=== PATIENT | female | born 1940 | race Caucasian/White ===

== ENCOUNTER 2017-07-13 16:56 | Emergency (ER) | payer MEDICARE, MEDICAID ==
[2017-03-18 08:30] VITALS: Ht 162.6 cm; Wt 103.4 kg
[~2017-07-13] VITALS: Ht 162.6 cm; Wt 103.4 kg
[~2017-07-13 16:56] MED LIST: ALBU2.5V36 INH; ALP25; ALPR-429 PO; ALPR-448 PO; AMLO2.5T74 PO; ASPI81TA86 PO; BUDE0.5A6 IH; CAR3.125 PO; FURO-45 PO; FURO20TA19 PO; GUAI600T57 PO; INDO-1 PO; LEVO750P2 IV; LOR5 PO; LOR5/325 PO; OMEP-137 PO; OXYC5TAB38 PO; POTA10CA40 PO; VANC1.5P11 IV
--- NOTE | 2017-07-13 17:09 | ER Report ---
History and Physical Time Seen By MD: 17:09 HPI/ROS CHIEF COMPLAINT: leg blisters and edema HISTORY OF PRESENT ILLNESS: This is a 76 year old female. She is having the start of blistering on her right ankle similar to prior blistering she had with hospitalization in Mar 2017. During that hospitalization, she was admitted here , then transferred to the burn center, then sent back here to [facility] for wound care. She started on Vancomycin and Levaquin, later transitioned to simply Levaquin. 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 Turned out to be most likely cellulitis which resolved with the Levaquin. She just started the blisters again and wanted to address them before they became so extensive again. She is having some increased edema in the ankles. She does take a diuretic daily. She just started taking potassium tablets recently with lab test last week with her primary care provider. No other new medications. She has no fevers or chills. She has chronic shortness of breath, but is no worse than her chronic levels. She does wear oxygen 2 liters nasal canula chronically. REVIEW OF SYSTEMS: Constitutional: No fever or chills. ENT: No congestion. Cardiovascular: No chest pain. No palpitations. Respiratory: As above. Gastrointestinal: No abdominal pain. No nausea or vomiting. Genitourinary: No dysuria. Neurological: Generalized weakness. Allergies: Coded Allergies: Influenza Virus Vaccines (Verified Allergy, Unknown, 07/13/17) Home Meds Active Scripts Clindamycin Hcl (CLINDAMYCIN HCL) 300 Mg Capsule, 300 MG PO Q6H, #40 CAPSULE 0 Refills Prov:CECE ARAUZ MD 07/13/17 Sulfamethoxazole/Trimet 800-160 Mg Tab (BACTRIM DS TABLET) 1 Each Tablet, 1 TAB PO Q12H for 10 Days, #20 TAB 0 Refills Prov:CECE ARAUZ MD 07/13/17 Omeprazole (OMEPRAZOLE) 20 Mg Tablet., 20 MG PO QDAY, #30 TAB Prov:JORDEN LAMB MD 09/09/16 Carvedilol (CARVEDILOL) 3.125 Mg Tab, 3.125 MG PO BID, #60 TAB Prov:JORDEN LAMB MD 09/09/16 Aspirin (ASPIRIN EC) 81 Mg Tablet., 81 MG PO QDAY, #30 TAB Prov:JORDEN LAMB MD 09/09/16 Amlodipine Besylate (AMLODIPINE BESYLATE) 2.5 Mg Tablet, 2.5 MG PO QDAY, #30 TAB Prov:JORDEN LAMB MD 09/09/16 Reported Medications Albuterol Sulfate 0.083% (ALBUTEROL SULFATE 0.083%) 2.5 Mg/3 Ml Vial.neb, 2.5 MG INH BID, INH 03/31/17 Budesonide (BUDESONIDE) 0.5 Mg/2 Ml Ampul.neb, 0.5 MG IH BID, ML 03/31/17 Alprazolam 0.5 Mg Tab (ALPRAZOLAM 0.5 MG TAB) 0.5 Mg Tablet, 0.5 MG PO BID Y for ANXIETY, TAB 03/31/17 Potassium Chloride (POTASSIUM CHLORIDE) 10 Meq Capsule.er, 10 MEQ PO DAILY 03/31/17 Furosemide (LASIX) 20 Mg Tablet, 0.5 TAB PO DAILY, TAB 03/31/17 Discontinued Scripts Oxycodone Hcl (OXYCODONE HCL) 5 Mg Tablet, 5-10 MG PO BID Y for PAIN, #60 TAB Prov:JORDEN LAMB MD 03/31/17 Reviewed Nurses Notes: Yes Hx Smoking: Yes Smoking Status: Former Smoker Hx Substance Use Disorder: No Hx Alcohol Use: Yes Constitutional Vital Sign - Last 24 Hours 07/13/17 07/13/17 07/13/17 07/13/17 17:04 17:06 17:11 17:15 Pulse 65 61 B/P (MAP) 186/82 (116) 198/83 (121) Pulse Ox 92 97 07/13/17 07/13/17 07/13/17 07/13/17 17:16 17:21 17:26 17:27 Temp 98.2 Pulse 62 59 58 58 Resp 18 B/P (MAP) 186/82 Pulse Ox 96 95 96 96 O2 Delivery Nasal Cannula 07/13/17 07/13/17 07/13/17 07/13/17 17:31 17:36 17:41 17:45 Pulse 57 55 54 B/P (MAP) 189/94 (125) 186/100 (128) Pulse Ox 97 96 96 07/13/17 07/13/17 07/13/17 07/13/17 17:46 17:51 17:56 18:00 Pulse 60 53 53 B/P (MAP) 191/107 (135) Pulse Ox 97 96 97 07/13/17 07/13/17 07/13/17 07/13/17 18:01 18:06 18:11 18:15 Pulse 56 58 55 B/P (MAP) 164/93 (116) Pulse Ox 96 96 96 07/13/17 07/13/17 07/13/17 07/13/17 18:16 18:21 18:26 18:30 Pulse 56 55 B/P (MAP) 187/98 (127) Pulse Ox 96 96 97 07/13/17 07/13/17 07/13/17 18:31 18:36 18:41 Pulse 56 57 58 B/P (MAP) 185/94 (124) Pulse Ox 95 96 96 Physical Exam General Appearance: The patient is alert. No acute distress. Respiratory: Lungs are clear to auscultation. Cardiovascular: Regular rate and rhythm. No murmurs, gallops or rubs. Normal capillary refill. 2+ edema in ankles to trace at mid-tibia bilaterally. Gastrointestinal: Abdomen is soft and non tender. Nondistended. Normal active bowel sounds. Neurological: Alert and oriented x3. Skin: Warm and dry. Erythema and warmth over anterior right ankle where the blisters are. Mild rash on medial left ankle, but no warmth or blisters there. Blisters are all intact on my evaluation. Musculoskeletal: Mild tenderness over the area of rash, otherwise non-tender. Full range of motion. DIFFERENTIAL DIAGNOSIS: After history and physical exam, differential diagnosis was considered for new onset of her blistering rash, which appears to be cellulitis again. Reviewed her hospitalization notes from March. Reviewed the culture results which showed MRSA, Strep and Proteus. Sensitivities available. Medical Decision Making Data Points Result Diagram: 07/13/17 1728 07/13/17 1728 Laboratory Hematology Test 07/13/17 17:28 Red Blood Count 4.74 M/uL (4.17-5.56) Mean Corpuscular Volume 85.7 fL (80.0-96.0) Mean Corpuscular Hemoglobin 29.0 pg (26.0-33.0) Mean Corpuscular Hemoglobin Concent 33.9 g/dL (32.0-36.0) Red Cell Distribution Width 14.5 % (11.5-14.5) Mean Platelet Volume 9.2 fL (7.2-11.1) Neutrophils (%) (Auto) 61.6 % (39.4-72.5) Lymphocytes (%) (Auto) 23.3 % (17.6-49.6) Monocytes (%) (Auto) 10.6 % (4.1-12.4) Eosinophils (%) (Auto) 3.7 % (0.4-6.7) Basophils (%) (Auto) 0.8 % (0.3-1.4) Nucleated RBC Relative Count (auto) 0.1 /100WBC Neutrophils # (Auto) 4.3 K/uL (2.0-7.4) Lymphocytes # (Auto) 1.6 K/uL (1.3-3.6) Monocytes # (Auto) 0.7 K/uL (0.3-1.0) Eosinophils # (Auto) 0.3 K/uL (0.0-0.5) Basophils # (Auto) 0.1 K/uL (0.0-0.1) Nucleated RBC Absolute Count (auto) 0.00 K/uL Sodium Level 139 mmol/L (137-145) Potassium Level 3.5 mmol/L (3.5-5.0) Chloride Level 97 mmol/L (98-107) Carbon Dioxide Level 36 mmol/L (22-31) Blood Urea Nitrogen 14 mg/dl (7-18) Creatinine 0.80 mg/dl (0.52-1.04) Glomerular Filtration Rate Calc > 60.0 Random Glucose 95 mg/dl (75-110) Calcium Level 8.8 mg/dl (8.4-10.2) Total Bilirubin 0.6 mg/dl (0.2-1.3) Aspartate Amino Transf (AST/SGOT) 18 U/L (0-35) Alanine Aminotransferase (ALT/SGPT) 20 U/L (0-56) Alkaline Phosphatase 73 U/L (0-126) Total Protein 7.1 gm/dl (6.3-8.2) Albumin 3.6 g/dl (3.5-5.0) Chemistry Test 07/13/17 17:28 White Blood Count 6.9 k/uL (4.5-11.0) Red Blood Count 4.74 M/uL (4.17-5.56) Hemoglobin 13.8 g/dL (12.0-16.0) Hematocrit 40.6 % (34.0-47.0) Mean Corpuscular Volume 85.7 fL (80.0-96.0) Mean Corpuscular Hemoglobin 29.0 pg (26.0-33.0) Mean Corpuscular Hemoglobin Concent 33.9 g/dL (32.0-36.0) Red Cell Distribution Width 14.5 % (11.5-14.5) Platelet Count 185 K/uL (150-450) Mean Platelet Volume 9.2 fL (7.2-11.1) Neutrophils (%) (Auto) 61.6 % (39.4-72.5) Lymphocytes (%) (Auto) 23.3 % (17.6-49.6) Monocytes (%) (Auto) 10.6 % (4.1-12.4) Eosinophils (%) (Auto) 3.7 % (0.4-6.7) Basophils (%) (Auto) 0.8 % (0.3-1.4) Nucleated RBC Relative Count (auto) 0.1 /100WBC Neutrophils # (Auto) 4.3 K/uL (2.0-7.4) Lymphocytes # (Auto) 1.6 K/uL (1.3-3.6) Monocytes # (Auto) 0.7 K/uL (0.3-1.0) Eosinophils # (Auto) 0.3 K/uL (0.0-0.5) Basophils # (Auto) 0.1 K/uL (0.0-0.1) Nucleated RBC Absolute Count (auto) 0.00 K/uL Glomerular Filtration Rate Calc > 60.0 Calcium Level 8.8 mg/dl (8.4-10.2) Total Bilirubin 0.6 mg/dl (0.2-1.3) Aspartate Amino Transf (AST/SGOT) 18 U/L (0-35) Alanine Aminotransferase (ALT/SGPT) 20 U/L (0-56) Alkaline Phosphatase 73 U/L (0-126) Total Protein 7.1 gm/dl (6.3-8.2) Albumin 3.6 g/dl (3.5-5.0) Microbiology Microbiology Date/Time Source Procedure Growth Status 07/13/17 17:49 Blood Blood Culture - Preliminary NO GROWTH AFTER 1 DAY, REINCUBATED Resulted 07/13/17 17:28 Blood Blood Culture - Preliminary NO GROWTH AFTER 1 DAY, REINCUBATED Resulted 07/13/17 18:26 Leg Right Gram Stain - Final Resulted 07/13/17 18:26 Leg Right Wound Culture - Preliminary NO GROWTH AFTER 1 DAY, REINCUBATED Resulted 07/13/17 18:26 Leg Right Anaerobic Culture Pending Resulted ED Course/Re-evaluation ED Course Blood and wound cultures ordered. Triple layer wrap with Xeroderm on the leg/ blisters. Wound care follow-up needed in 2 days as well as contacting primary care for follow-up. Based on Previous culture and sensitivity, selected Bactrim and Clindamycin oral treatment at this time. Decision to Disposition Date: Jul 13, 2017 Decision to Disposition Time: 18:09 Depart Departure Latest Vital Signs Vital Signs Date Time Temp Pulse Resp B/P (MAP) Pulse Ox O2 Delivery O2 Flow Rate FiO2 07/13/17 18:41 58 185/94 (124) 96 07/13/17 17:27 98.2 18 Nasal Cannula Impression: Primary Impression: Cellulitis Condition: Improved Disposition: HOME OR SELF-CARE Referrals: LAMBERT ZELAYA DO (PCP) New Scripts Clindamycin Hcl (CLINDAMYCIN HCL) 300 Mg Capsule 300 MG PO Q6H, #40 CAPSULE 0 Refills Prov: CECE ARAUZ MD 07/13/17 Sulfamethoxazole/Trimet 800-160 Mg Tab (BACTRIM DS TABLET) 1 Each Tablet 1 TAB PO Q12H for 10 Days, #20 TAB 0 Refills Prov: CECE ARAUZ MD 07/13/17 Patient Instructions: Cellulitis (ED) Additional Instructions: Take the following 2 antibiotics: Clindamycin 300mg four times a day for 10 days. Bactrim DS twice a day for 10 days. Keep the Triple layer wrap on for two days. Call and arrange a follow-up with physical therapy here at the hospital for wound care and see them on or Wednesday. No other changes to medication at this time. On the left leg, start wearing Compression stockings. Keep legs elevated while at rest. Follow-up with Dr. Zelaya's office, call them to arrange an appointment for later this week. Problem Qualifiers Primary Impression: Cellulitis Site of cellulitis: extremity Site of cellulitis of extremity: lower extremity Laterality: right Qualified Codes: L03.115 - Cellulitis of right lower limb CECE ARAUZ MD Jul 13, 2017 17:09
[2017-07-13 17:42] LABS: PLATELET COUNT, AUTOMATED 185 K/uL (150-450)
[2017-07-13] MEDS ORDERED: SULF-198 PO (18:10)
[2017-07-13] MEDS ORDERED: CLIN300C99 PO (18:10)
[2017-07-13 18:41] VITALS: BP 185/94
== END 2017-07-13 19:01 | disposition home or self-care (01) ==
LOC: ER 17:07
DX: L03.115 Cellulitis of right lower limb (principal)
CPT/HCPCS: 82040; 82247; 82310; 82374; 82435; 82565; 82947; 84075; 84132; 84155; 84295; 84450; 84460; 84520; 85025; 87040; 87070; 87073; 87205; 99284

== ENCOUNTER 2017-07-16 15:30 | Outpatient (RCR) | payer MEDICARE, MEDICAID ==
[2017-03-18 08:30] VITALS: BMI 39.5
[~2017-07-16 15:30] MED LIST changes: +CLIN300C99 PO; +SULF-198 PO
--- NOTE | 2017-07-16 16:51 | PT INITIAL EVALUATION ---
MEDICAL DIAGNOSIS: R) LE wound TREATMENT DIAGNOSIS: R) LE cellulitis with ulceration DATE OF ONSET: 07/13/17 SUBJECTIVE: . Patient presents today with R) LE wrapped with 3 layer compression wrap from ER visit on Wednesday. She reports that she noticed increased redness and blistering on the R) anterior bishop. She presented to the ER on Wednesday, July 13. She received wound care, and was started on 2 antibiotics. She has a history of extensive bilateral LE wounds (March- May 2017, see EMR for details). REHAB PROBLEM LIST: Open wound PREVIOUS MEDICAL HISTORY: See EMR, COPD, CHF, previous bilateral LE wounds OBJECTIVE: Wound Measurement: R) anterior bishop: 1 cm L x 1 cm W x 0.1 cm D Girth Measurements: R) LE superior to malleoli: 27 cm mid calf: 40 cm L) LE superior to malleoli: 25.5 cm mid calf: 38.5 cm ASSESSMENT: The patient's R) LE demonstrates increased edema and slight erythema. Blister present on R) anterior bishop, which demonstrate yellow coloration. PT unroofed to reveal purulent drainage. PT completed conservative, selective debridement of non-viable tissue and slough with tweezers and scissors to the depth of the dermis. Wound base of blister revealed healthy granulation tissue. PT cleansed bilateral LEs with gentle soap and then treated LEs with moisturizing cream. Wound covered with bordered gauze dressing, low pressure, bilateral compression socks donned. The pt will benefit from skilled PT wound care to include sharps debridement, as well as advanced wound care product selection and application and compression stocking management in order to facilitate wound healing. Short Term Goals 1: Pt to maintain clean, dry and intact dressing between wound care visits 2: Wound to demonstrate 100% granulation tissue 3: Wound to gradually epithelialize from edges inward and demo 100% closure 4: Pt to obtain appropriate compression stockings and receive education to raúl/ doff Patient's Goals: Wound healing PLAN: Patient to be seen for skilled PT wound care to include sharps debridement, as well as advanced wound care product selection and application and compression stocking management 1-2x/week for up to 90 days Thank you for this referral. If you have any questions, comments, or concerns about this report or plan, please contact me at . Rima Marion, PT, DPT MTDD
--- NOTE | 2017-07-20 07:48 | PT PLAN OF CARE ---
Physician: Dr. Boston Patient is being seen: Zara Elizalde Therapist:Rima Marion, PT, DPT Medical Diagnosis: R) LE wound Treatment Diagnosis: R) LE cellulitis with ulceration Date of Onset: 07/13/17 Date of Initial Evaluation: 07/16/17 Date patient was last seen: 07/16/17 Number of treatments: only eval completed Number of cancellations/No shows: 0 Reasons for continuing therapy: Pt is receiving [facility] services and therefore is not eligible to also receive OP services. Her wound care will be continued by her [facility] PT. CHRISTA
== END 2017-07-16 18:00 | disposition home or self-care (01) ==
LOC: PT 15:30
PROVIDERS: ATTEND Family Medicine
DX: I89.0 Lymphedema, not elsewhere classified (principal); S81.801A Unspecified open wound, right lower leg, initial encounter; L03.115 Cellulitis of right lower limb; J44.9 Chronic obstructive pulmonary disease, unspecified; I50.9 Heart failure, unspecified
CPT/HCPCS: 97161

== ENCOUNTER → 2017-08-10 | Outpatient (REF) | payer MEDICARE, MEDICAID ==
[2017-03-18 08:30] VITALS: BMI 39.5
== END ==
LOC: ZZSENDIN 16:02
PROVIDERS: ATTEND Family Medicine
DX: E87.6 Hypokalemia (principal)
CPT/HCPCS: 82310; 82374; 82435; 82565; 82947; 84132; 84295; 84520

== ENCOUNTER → 2018-06-07 | Outpatient (REF) | payer MEDICARE, MEDICAID ==
[2017-03-18 08:30] VITALS: BMI 39.5
[~2018-06-07] MED LIST changes: -AMLO2.5T74 PO; +AMLO2.5T76 PO
== END ==
LOC: ZZSENDIN 12:52
PROVIDERS: ATTEND Family Medicine
DX: E87.6 Hypokalemia (principal)
CPT/HCPCS: 82310; 82374; 82435; 82565; 82947; 84132; 84295; 84520